=== PATIENT | male | born 1955 | race Caucasian/White ===

== ENCOUNTER 2022-12-19 09:19 | Outpatient (CLI) | payer OTHER, SELFPAY ==
[2022-12-19 12:56] LABS: Albumin* 4.2 g/dL (3.3-5.0)
[2022-12-19 12:57] LABS: Chloride* 108 mmol/L (96-114); Potassium* 4.6 mmol/L (3.6-5.1); Sodium* 141 mmol/L (135-149)
[2022-12-19 12:59] LABS: Aspartate Amino Transferase* 26 U/L (12-35); Bilirubin Total* 0.6 mg/dL (0.1-1.5); Carbon Dioxide* 30 mmol/L (20-32); Cholesterol* 249 mg/dL (90-199); Creatinine* 0.8 mg/dL (0.5-1.5); Estimated Glomerular Filt Rate 96 ml/min; Total Protein* 6.8 g/dL (6.0-8.3)
[2022-12-19 13:00] LABS: Alanine Aminotransferase* 24 U/L (4-50); Alkaline Phosphatase* 76 U/L (40-150); Blood Urea Nitrogen* 18 mg/dL (7-30); Glucose* 98 mg/dL (60-115); HDL Cholesterol* 66 mg/dL (>=40); LDL Cholesterol Calculated 163 mg/dL (<100); Triglycerides* 102 mg/dL (40-149)
[2022-12-19 13:19] LABS: Vitamin D 25 Hydroxy* 67 ng/mL (30-80)
[2022-12-19 13:30] LABS: PSA Screen* 0.88 ng/mL (0.10-4.00)
[2022-12-19 13:49] LABS: Vitamin B12* 556 pg/mL (243-894)
== END 2022-12-19 09:20 | disposition home or self-care (01) ==
LOC: NFLDREF 09:20
PROVIDERS: PCP Family Medicine; Visit Provider Family Medicine
DX: Z00.00 Encounter for general adult medical examination without abnormal findings (principal); E55.9 Vitamin D deficiency, unspecified; R53.83 Other fatigue; E78.5 Hyperlipidemia, unspecified; Z12.5 Encounter for screening for malignant neoplasm of prostate
CPT/HCPCS: 80053; 80061; 82306; 82607; 84153; 84443

== ENCOUNTER 2023-01-22 08:02 | Outpatient (CLI) | payer OTHER, SELFPAY | END 2023-01-22 08:03 | disposition home or self-care (01) | LOC: OP CLINIC 08:04 | PROVIDERS: PCP Family Medicine; Visit Provider Surgery | DX: Z12.11 Encounter for screening for malignant neoplasm of colon (principal); K63.5 Polyp of colon; Z86.010 Personal history of colon polyps | CPT/HCPCS: 45378; 99153; J2250; J3010 ==

== ENCOUNTER 2024-02-15 09:20 | Outpatient (CLI) | payer OTHER, SELFPAY | END 2024-02-15 09:21 | disposition home or self-care (01) | LOC: NFLDREF 13:21 | PROVIDERS: PCP Family Medicine; Referring Provider Family Medicine; Visit Provider Family Medicine | DX: E55.9 Vitamin D deficiency, unspecified (principal); E78.5 Hyperlipidemia, unspecified; Z13.1 Encounter for screening for diabetes mellitus; Z12.5 Encounter for screening for malignant neoplasm of prostate | CPT/HCPCS: 80061; 82306; 82607; 82947; G0103 ==

== ENCOUNTER 2024-03-07 06:22 | Day surgery (SDC) | payer OTHER, SELFPAY ==
[2024-03-07] VITALS (9 sets, daily range): BP systolic 126–142; BP diastolic 73–88; PULSE 70–84; RESP 16; TEMP 36.6–36.8; O2SAT 97–100; BMI 25.7
[2024-03-07] MEDS: BUPIVACAINE 0.25% 30 ML INJECTION (07:30)
[2024-03-07] MEDS: LIDOCAINE 1% MDV 20 ML INJECTION (07:30)
--- NOTE | 2024-03-07 07:33 | P.ORPRC_ITS ---
Procedure Note Date of procedure: 03/07/24 Procedure: PREOPERATIVE DIAGNOSIS: 1. Left middle trigger digit POSTOPERATIVE DIAGNOSIS: 1. Left middle trigger digit PROCEDURE: 1. Left middle trigger (A1 abena) release SURGEON: Basil Juares MD. AUTOMATIC CIGAR WRAPPER TENDER: JOCELIN Bran. An assistant offset press operator was critical for this case to aid in patient positioning, tissue retraction, limb manipulation/positioning, and closure. ANESTHESIA: Local anesthetic IMPLANTS: None TOURNIQUET: 4 min at 250 mmHg COMPLICATIONS: None INDICATIONS: The patient is a pleasant 69-year-old male who has history of left middle finger pain and triggering. Symptoms did not improve with conservative management. Patient subsequently elected to proceed with surgical intervention consisting of left middle finger A1 abena release. Prior to surgery risks and benefits were discussed with patient all questions were answered informed consent was obtained. DESCRIPTION OF PROCEDURE: Patient was seen preoperatively and operative site was marked. Patient was then brought to the operating room placed in supine position on the OR table. A tourniquet was placed on the patient's left arm and left upper extremity was prepped and draped in usual sterile fashion. A surgical time-out was performed confirming patient name, procedure, and location. The subcutaneous tissues overlying the left middle finger A1 abena were injected with combination of 1% lidocaine and 0.25% bupivacaine. Operative extremity was then elevated and exsanguinated with an Esmarch, and tourniquet was inflated to 250 mmHg. A skin incision measuring approximately 1 cm was made longitudinally over the A1 abena of the left middle finger. Blunt dissection was used to dissect through subcutaneous tissues. The underlying flexor tendons and A1 abena were identified and retractors were used to protect the neurovascular structures. The A1 abena was then released using a tenotomy scissor. After complete release of the A1 abena, the patient was asked to flex and extend their fingers, and no active triggering was noted. Tourniquet was then released and hemostasis was achieved with bipolar electrocautery. Total tourniquet time was 4 minutes. Wound was the irrigated with normal saline. Skin incision was closed with 4-0 nylon horizontal mattress sutures, and a sterile dressing was applied. Patient was then transferred to the recovery room in stable condition. POSTOPERATIVE PLAN: 1. Patient will be discharged to home day of surgery. 2. They were given instructions for wound care and finger range of motion exercises. 3. Return to the clinic for follow-up evaluation in 10-14 days for wound check and suture removal.
--- NOTE | 2024-03-07 08:35 | SUR.PHASEII ---
Pt from wheelchair to lounge chair upon return from OR. Pt verbalized understanding of discharge instructions and readiness to be discharged. picked up patient.
== END 2024-03-07 08:15 | disposition home or self-care (01) ==
LOC: OR 06:23
PROVIDERS: PCP Family Medicine; Visit Provider Orthopaedic Surgery
PROC: (CPT 26055; principal; 2024-03-07 07:30)
DX: M65.332 Trigger finger, left middle finger (principal)
CPT/HCPCS: 26055; J0665

== ENCOUNTER 2024-03-12 09:05 | Outpatient (CLI) | payer OTHER, SELFPAY ==
--- NOTE | 2024-03-12 09:15 | US_ITS ---
Patient: HAMIDA MATHUR Facility:?[facility] Patient ID:?[id number] Site Patient ID:?[id number]. Site :?[id number] Study:?US-Abdomen AORTA-03/12/2024 9:53:59 AM Ordering Physician:?Soco Dowd Final Report: TECHNIQUE: Ultrasound of the abdominal aorta. INDICATION: History of smoking, screening for AAA. FINDINGS: Proximal abdominal aorta: 2.0 cm. Middle aorta: 1.9 cm. Distal aorta: 1.8 cm. Right iliac artery: 1.1 cm. Left iliac artery: 1.1 cm. IMPRESSION: No evidence for abdominal aortic aneurysm. Dictated by Brian Hodges MD @ 03/12/2024 4:56:19 PM Signed by:?Brian Hodges MD @03/12/2024 4:56:19 PM (Electronic Signature)
== END 2024-03-12 09:06 | disposition home or self-care (01) ==
LOC: US 09:06
PROVIDERS: PCP Family Medicine; Visit Provider Family Medicine
DX: Z13.6 Encounter for screening for cardiovascular disorders (principal)
CPT/HCPCS: 76706

== ENCOUNTER 2024-07-29 09:24 | Outpatient (CLI) | payer OTHER, SELFPAY | END 2024-07-29 09:25 | disposition home or self-care (01) | PROVIDERS: PCP Family Medicine; Visit Provider Family Medicine | DX: N62 Hypertrophy of breast (principal) | CPT/HCPCS: 82670; 83002; 84403; 84704 ==

== ENCOUNTER 2024-08-28 08:27 | Outpatient (CLI) | payer OTHER, SELFPAY ==
--- NOTE | 2024-08-28 08:45 | CRLHL7_ITS ---
For Patients: As a result of the Cures Act, medical imaging exams and procedure reports are released immediately into your electronic medical record. You may view this report before your referring provider. If you have questions, please contact your health care provider. DIGITAL DIAGNOSTIC BILATERAL MAMMOGRAM USING TOMOSYNTHESIS AND COMPUTER-AIDED DETECTION CLINICAL HISTORY: RIGHT breast lump. COMPARISON: None. TECHNIQUE: Digital BILATERAL mammogram in four projections with computer-aided detection. Tomosynthesis was used in this interpretation. BREAST COMPOSITION: There are scattered areas of fibroglandular density. FINDINGS: /O BILATERAL mammogram images submitted. No suspicious masses or architectural distortion. Mild subareolar fibroglandular tissue noted bilaterally, RIGHT greater than LEFT. No adenopathy or suspicious calcifications. IMPRESSION: Mild BILATERAL subareolar gynecomastia, RIGHT greater than LEFT. No suspicious findings. RECOMMENDATIONS: Clinical follow-up. Results and recommendations discussed with the patient. BI-RADS Category 2: Benign A lay language report of this examination will be provided to the patient. Dictated by Christ Valdez MD @ 08/28/2024 9:37:18 AM /Dictated by: Christ Valdez MD @ 08/28/2024 9:37:00 AM (Electronically Signed)
== END 2024-08-28 08:28 | disposition home or self-care (01) ==
LOC: MAMMO 08:27
PROVIDERS: PCP Family Medicine; Visit Provider Family Medicine
DX: N63.41 Unspecified lump in right breast, subareolar (principal)
CPT/HCPCS: 77065; G0279

== ENCOUNTER 2024-10-22 11:11 | Outpatient (REF) | payer OTHER, SELFPAY ==
[2024-10-24 03:20] LABS: Prolactin 8.5 ng/mL (2.1-17.7)
[2024-10-24 12:13] LABS: Follicle Stimulating Hormone 5.1 IU/L (1.5-12.4); Luteinizing Hormone, Serum 6.1 IU/L (1.7-8.6); Sex Hormone Binding Globulin 41 nmol/L (19-76); Testosterone, Adult Male 308 ng/dL (300-720); Testosterone, Free Calculation 49 pg/mL (47-244); Testosterone, Percentage Free 1.6 % (1.6-2.9)
== END 2024-10-22 11:12 | disposition home or self-care (01) ==
LOC: NPINS 11:11
PROVIDERS: PCP Family Medicine; Visit Provider Internal Medicine Endocrinology, Diabetes & Metabolism
DX: R79.89 Other specified abnormal findings of blood chemistry (principal)
CPT/HCPCS: 83001; 83002; 84146; 84270; 84402; 84403

== ENCOUNTER 2025-04-28 09:23 | Outpatient (CLI) | payer OTHER, SELFPAY | END 2025-04-28 09:24 | disposition home or self-care (01) | LOC: NFLDREF 04-30 11:10 | PROVIDERS: PCP Family Medicine; Referring Provider Family Medicine; Visit Provider Family Medicine | DX: E78.5 Hyperlipidemia, unspecified (principal); R73.03 Prediabetes; E55.9 Vitamin D deficiency, unspecified; R03.0 Elevated blood-pressure reading, without diagnosis of hypertension; R53.83 Other fatigue; Z12.5 Encounter for screening for malignant neoplasm of prostate | CPT/HCPCS: 80053; 80061; 82306; 82607; G0103 ==

== ENCOUNTER 2025-08-06 09:18 | Outpatient (CLI) | payer OTHER, SELFPAY | END 2025-08-06 09:19 | disposition home or self-care (01) | LOC: NFLDREF 08-12 07:14 | PROVIDERS: PCP Family Medicine; Referring Provider Family Medicine; Visit Provider Family Medicine | DX: E78.5 Hyperlipidemia, unspecified (principal) | CPT/HCPCS: 80061 ==

== ENCOUNTER 2025-09-10 10:15 | Outpatient (RCR) | payer OTHER, SELFPAY ==
--- NOTE | 2025-07-21 12:25 | OT.OPOE ---
OT Outpatient Ortho Eval OT Outpatient Ortho Eval* Start: 07/21/25 07:50 Freq: Status: Active Protocol: Document 07/21/25 08:09 [facility] (Rec: 07/21/25 12:07 [facility] [id number]) E-signed By Nadine Rivero OTR/L OT OP Ortho Eval Details Complexity Complexity Low Insurance Information Insurance [employer] Information Other Insurance [employer] Gold Choice Outpatient History/Precautions Current Condition/Medical Diagnosis Referring Provider Dr. Dowd Medical Diagnoses M711.lateral epicondylitis, right elbow Treatment Diagnosis M25.521- pain in elbow(R) M79.601- pain in arm (R) M25.341- hand instability (R) Other Conditions anxiety Medical/Functional History Prior Level of prior vision deficits Function/Mobility Social History Employment Status Retired Ortho Subjective Subjective Subjective Pt reports pain in R forearm and elbow for last 2 months. Reports impacts his ability to brush his teeth, lift containers, and walk his dog. Pt reports having counterforce band but wasn't sure if it helped. Pain Assessment Pain Pain Yes Pain Comments 4/10 pain in R elbow at rest 7/10 pain in R elbow with activity Range of Motion and Strength Elbow/Forearm Range of Motion and Strength Elbow/Forearm Range BUE WNL of Motion and Strength Wrist Range of Motion and Strength Wrist Range of BUE WNL Motion and Strength Hand/Finger/Thumb Range of Motion and Strength Hand/Finger/Thumb BUE WNL Range of Motion and Strength Hand Pinch/Wet Mixer Strength Hand Pinch/Wet Mixer Strength Hand Pinch/Wet Mixer Left Hand,Right Hand Strength Left Hand Wet Mixer Strength 57 Position 1 in Elbow Flexion (lbs) Lateral Pinch 18 Strength (lbs) Three Point Pinch ( 15 lbs) Right Hand Wet Mixer Strength 36 Position 1 in Elbow Flexion (lbs) Lateral Pinch 18 Strength (lbs) Three Point Pinch ( 13 lbs) OT Objective Data Sensation Sensation Assessment denies N/T Summary Comments Upper Extremity Special Tests Elbow Cozens Test Negative Left,Positive Right OT Problems Problems Problems Decreased Strength,Pain,Lifting,Gripping,Pinching Other Problems Opening Containers Patient Potential Good Assessment Assessment Assessment Pt is a 70 year old male who is referred to OT due to ongoing pain in R elbow. Pt is experiencing pain with use of RUE, specifically with grasping and lifting. Pt also noted to have weakness in inspector fuel hose strength. Pt's symptoms consistent with lateral epicondylitis. Pt would benefit from skilled OT to work on ADL retraining /modifications, modalities, tissue mobilization, and graded strengthening so pt can return to prior level functional status. Occupational Therapy Treatment Plan - OP Potential Rehabilitation Good Potential Set Goals Goals Set with Yes Patient Goals Goals Goals to be met by 09/29/2026: 1) Pt will report 0/10 pain with brushing teeth with R hand. 2) Pt will report compliance to HEP in order to progress towards goals. 3) Pt will increase R inspector fuel hose strength to 50# or more in order to promote function. Treatment Plan Treatment Plan Evaluation,Edema Control,Iontophoresis with Dexamethasone Sodium Phosphate 1 mL (4mg per mL),Manual Therapy,Splinting,Ultrasound,Therapeutic Exercise, Therapeutic Activities,Self Care/Home Management,[place] Aide Training,Education Expected Frequency 1-2x Week Expected Duration 8-10 Weeks Home Program Home Program Home Program Initiated Home Program cross friction mobilization; counter force band; ICE Specifics Certification Certification Statement I Certify That: Therapy Services Provided,Therapy Plan Established, Therapy Plan Reviewed Certification Information Clinic ID # [id number] Initial 07/21/25 Certification Date Recertification Due 09/29/25 Date Provider Signature Yes Required Provider Signature POC & Medical Necessity Shows Agreement With Physician NPI Number Write NPI# Here Physician Comment/ Comment or Changes Change Physician Signature Please Sign/Date Here & Date Requested
== END 2025-09-10 11:14 | disposition home or self-care (01) ==
PROVIDERS: PCP Family Medicine; Visit Provider Family Medicine
DX: M77.11 Lateral epicondylitis, right elbow (principal); M79.601 Pain in right arm; M25.341 Other instability, right hand; Z51.89 Encounter for other specified aftercare
CPT/HCPCS: 97035; 97110; 97140; 97165; 97530; X5282